=== PATIENT | female | born 1985 | race Caucasian/White ===

== ENCOUNTER 2019-09-07 05:22 | Emergency (ER) | payer OTHER ==
[~2019-09-07] VITALS: Ht 167.6 cm; Wt 54.5 kg
[2019-09-07] MEDS ORDERED: KETOROLAC 60 MG/2 ML VIAL (J1885) IM ONE (06:30)
[2019-09-07] MEDS ORDERED: CYCLOBENZAPRINE 5MG TABLET PO ONE (06:30)
[2019-09-07] MEDS ORDERED: ACETAMINOPHEN 325 MG TAB PO ONE (06:30)
[2019-09-07 07:22] VITALS: BP 111/68
[2019-09-07] MEDS ORDERED: CYCL5TAB PO (07:30)
[2019-09-07] MEDS ORDERED: KETO10TAB PO (07:30)
== END 2019-09-07 07:43 | disposition home or self-care (01) ==
LOC: M ED 05:22
DX: S39.012A Strain of muscle, fascia and tendon of lower back, initial encounter (principal); F17.218 Nicotine dependence, cigarettes, with other nicotine-induced disorders; Y93.9 Activity, unspecified; Y92.89 Other specified places as the place of occurrence of the external cause
CPT/HCPCS: 96372; 99283; J1885